=== PATIENT | male | born 1945 | race Caucasian/White ===

== ENCOUNTER 2024-05-16 19:35 | Emergency (ER) | payer OTHER, SELFPAY ==
[2024-05-16] VITALS (7 sets, daily range): BP systolic 112–142; BP diastolic 64–79; PULSE 86–89
[2024-05-16 20:00] LABS: % Basophils 0.4 % (0-2); % Eosinophils 0.3 % (0-6); % Immature Granulocytes 0.1 % (0-0.5); % Lymphocytes 22.1 % (20.5-51.1); % Monocytes 9.4 % (1.7-9.3); % Neutrophils 67.7 % (42.2-75.2); Absolute Lymphocytes 1.5 10^3/uL (1.2-3.4); Absolute Monocytes 0.7 10^3/uL (0.1-0.6); Absolute Neutrophils 4.7 10^3/uL (1.4-6.5); Hematocrit 37.7 % (39.0-52.0); Mean Corp Hgb Conc. 34.5 g/dL (33.0-37.0); Mean Corpuscular Hgb 28.8 pg (27.0-31.0); Mean Corpuscular Volume 83.4 fL (80.0-94.0); Mean Platelet Volume 10.7 fL (7.4-10.4); Nucleated Red Blood Cells % 0 % (-); Platelet Count 158 10^3/uL (130-400); Red Blood Cell Count 4.52 10^6/uL (4.70-6.10); Red Cell Dist. Width 13.2 % (11.5-14.5); White Blood Cell Count 6.9 10^3/uL (4.8-10.8)
--- NOTE | 2024-05-16 20:10 | ED.GENMED ---
History of Present Illness
General
Chief Complaint: Chest Pain
Source: patient
Exam Limitations: none
Time Seen by Provider: 05/16/24 19:57
History of Present Illness
History of Present Illness:
This is a 78 year old male that comes in with c/o chest pain and dizziness. States that he was painting in a bathroom today. States that he started with dizziness. Then he felt like he had to take a deep breath as he was SOB. States that he feels
like he has a knot in his chest. States that he is nauseated and had a headache.States that he feels like his head is spinning. Denies any fever, chills, abd pain, vomiting, diarrhea, urinary burning.
Past History
Past History
ED Past Medical History: CVA, GERD, HTN, Hypercholesterolemia, NIDDM, Psychiatric (Anxiety, Depression) and Other (Headaches, Rheumatic heart disease, Hiatal hernia, )
ED Past Surgical History: Orthopedic (Left thumb reattached) and Other (Hernia, Skin graft right hand, )
Social History
Tobacco: Non-smoker
Alcohol: None
Personal:
Living: with family
Review of Systems
Review of Systems
All Other Systems: ROS reviewed and negative except as documented in HPI and ROS
Constitutional: Reports no symptoms; Denies fever or chills
EENT: Reports no symptoms
Respiratory: Reports trouble breathing; Denies cough
Cardiac: Reports chest pain
ABD/GI: Reports nausea; Denies abdominal pain, vomiting or diarrhea
: Reports no symptoms; Denies dysuria, frequency or urgency
Musculoskeletal: Reports no symptoms
Skin: Reports no symptoms
Neurological: Reports dizzy and headache
Psychiatric: Reports no symptoms
Phy Exam
General Physical Exam
General Presentation: no apparent distress
General age: appears stated age
General Skin: warm and dry
General Habitus: elderly
General Mental: alert
General Hydration: appears well hydrated
ENT Exam
ENT Exam: TM's normal, pharynx normal and neck supple
Eye Exam
Eye Exam: EOMI
Cardiovascular Exam
Cardiovascular Exam: regular rate/rhythm, no edema, no murmur and normal peripheral pulses
Pulmonary Exam
Pulmonary Exam: lungs clear, no respiratory distress, no rales, chest non tender, no crackles, no rhonchi, no wheezing and no cough
Gastrointestinal Exam
Gastrointestinal Exam: normal bowel sounds, non tender, soft, no organomegaly, no pulsatile mass and non distended
Musculoskeletal Exam
Musculoskeletal Exam: full ROM and no edema
Skin Exam
Skin Exam: normal color, warm/dry, no rash and no petechia
Psychiatric Exam
Psychiatric Exam: normal mood/affect
Scores
Heart Score for Chest Pain Patients
STEMI patient?: No
History: Moderately Suspicious
ECG: Normal
Age: >/= 65 years
Risk Factors: 1 or 2 Risk Factors
Troponin: </= Normal Limit
Heart Score for Chest Pain Patients: 4
Heart Score Risk: 20.3% MACE over next 6 weeks
Course
Orders/Labs/Results
Orders:
Orders
05/16/24 19:41
EKG [Electrocardiogram (*1)] Urgent
Reason for Study: Chest Pain
EKG- Treatment ONCE
05/16/24 19:54
Complete Blood Count/With Diff Urgent
Comprehensive Metabolic Panel Urgent
Troponin I Urgent
05/16/24 20:09
Orthostatic VS- Treatment ONCE
0.9% Sodium Chloride 1000 ml [Nss] 1,000 ml IV BOLUS
Pantoprazole [Protonix IV] 40 mg IV NOW STA
Sucralfate Suspension [Carafate Suspension] 1 gm PO NOW STA
05/16/24 20:10
CR Chest - 2 Views Urgent
Comment:
Reason For Exam: Chest pain
05/16/24 20:12
Ondansetron Injectable [Zofran] 4 mg IV NOW STA
05/16/24 20:13
Acetaminophen [Tylenol] 1,000 mg PO NOW STA
05/16/24 20:15
CT Head W/o Iv Contrast Urgent
Comment: Prior CVA
Reason For Exam: dizziness, headache
05/16/24 21:44
EKG- Treatment ONCE
05/16/24 23:00
Electrocardiogram (*1) Urgent
Reason for Study: Chest Pain
Other Reason for Exam: Repeat with Troponin
Troponin I Urgent
Abnormal Lab Results
05/16/24
19:54
RBC 4.52 L 10^6/uL
(4.70-6.10)
Hct 37.7 L %
(39.0-52.0)
MPV 10.7 H fL
(7.4-10.4)
Absolute Monos (auto) 0.7 H 10^3/uL
(0.1-0.6)
Monocytes % 9.4 H %
(1.7-9.3)
Sodium 134 L mmol/L
(135-145)
BUN 23 H mg/dl
(9-20)
Glucose 156 H mg/dl
(70-99)
05/16/24 19:54
05/16/24 19:54
Dehydration. Hyperglycemia. Troponin 0.019. Second Troponin <0.012
Vital Signs
Initial and Last Documented VS:
Initial Vital Signs
Temp Pulse Resp BP Pulse Ox
98.4 F 85 18 112/79 99
05/16/24 19:41 05/16/24 19:41 05/16/24 19:41 05/16/24 19:41 05/16/24 19:41
Last Documented Vital Signs
Temp Pulse Resp BP Pulse Ox
98.4 F 86 11 113/67 98
05/16/24 19:41 05/16/24 22:45 05/16/24 22:45 05/16/24 22:00 05/16/24 22:45
MDM/Problems Addressed
Differential Diagnosis Includes:
Coronary syndrome. GERD,
MDM/Problems Addressed:
This is a 78 year old male that comes in with feeling like he has to take a deep breath and that he has chest pain. States that he feels like his head is spinning, he has a headache and nausea.
Will check labs, CT head, Chest x-ray, Give IV fluids and medicate for pain.
Back into see patient. Explained that his blood work shows Dehydration. His CT of the head and chest x-ray are normal. Patient states that he still has a slight headache but his chest pain is gone. This may be due to Reflux but as long as the second
Troponin is negative will place patient on the Cardiology hot line for further evaluation.
Explained that his second Troponin is normal. Will have patient take his Pantoprazole daily. Return with any concerns.
Repeat ECG: rate 90, 1st degree heart block, Left axis. Normal QRS, Negative for ischemia. ( RBBB noted on earlier ECG)
Chronic conditions affecting care:
Hiatal hernia, GERD,
Chronic conditions affecting care: DM
Acute Exacerbation and/or Progression of Chronic Illness:
GERD,
*Radiology
Radiology exam reviewed: radiology read reviewed (CT head-NO acute intracranial abnormality noted. Mild global parenchymal volume loss with sequelae of mild small vessel ischemic disease. Chest - NO acute cardiopulmonary abnormality. Unchanged
mild compression deformity of the T10 vertebral body. )
*Pulse Oximetry
Patient hypoxic: no
*EKG
Interpreted by ED Provider?: Yes
Heart Rate: 88
Rate: normal
Rhythm: sinus (MA-.20)
[place]: left axis deviation
Interval: normal interval
QRS Pattern: right bundle branch block
Ischemia: no ischemia
*Payer Specialist Interpretation
Rate: normal
Heart Rate: 89
Rhythm: sinus
*Critical Care Note
Total Time (30-74mins, 75-104mins- exclusive of procedures): Not Applicable
ED Attending Note
-
Portions of this chart may have been created with voice recognition software.� Occasional wrong word or��sound alike� substitutions may have occurred due to the inherent limitations of voice recognition software.
Discharge Plan
Departure
Patient Disposition: Home (Routine Discharge)
Date of Disposition: 05/16/24
Time of Disposition: 23:43
Patient with high blood pressure during this ER visit?: No
Condition: Good
Covid-19: Not Applicable
Discharge Problem:
Chest pain, SOB (shortness of breath)
Instructions: Shortness of Breath, Adult ED, Chest Pain DCA Follow Up
Prescriptions:
No Action
Ambien:
glipizide [Glipizide XL] 5 MG tablet extended release 24hr
5 mg PO BID
simvastatin 80 MG tablet
80 mg PO DAILY
aspirin [Aspir-Low] 81 MG tablet,delayed release (DR/EC)
81 mg PO DAILY
alprazolam 0.5 MG tablet
0.5 mg PO TID
metformin 1,000 MG tablet
1,000 mg PO BID
Lisinopril 10 MG
10 10 PO DAILY
Meclizine 25 MG
25 mg PO TID
zinc acetate 50 mg (zinc) Capsule
50 mg PO DAILY
aspirin 325 mg Tablet
325 mg PO DAILY
glipizide 5 mg Tablet Extended Release 24hr
5 mg PO BID
simvastatin 80 mg Tablet
80 mg PO HS
alprazolam 0.5 mg Tablet
0.5 mg PO TID
Patient Comments:
Patient usually takes once a day for anxiety.
tolterodine 2 mg Tablet
4 mg PO DAILY
amitriptyline 25 mg Tablet
25 mg PO DAILY
metformin 1,000 mg Tablet
1,000 mg PO BID
gabapentin 300 mg Capsule
300 - 600 mg PO DAILY
zolpidem 10 mg Tablet
10 mg PO HS
sertraline 50 mg Tablet
50 mg PO DAILY
Januvia 100 mg Tablet
100 mg PO DAILY
cholecalciferol (vitamin D3) [Vitamin D3] 50 mcg (2,000 unit) Capsule
50 mcg PO DAILY
Invokana 300 mg Tablet
300 mg PO DAILY
aspirin 81 mg Capsule
81 mg PO DAILY
oxycodone 5 mg tablet
5 mg PO Q4HPRN PRN (Reason: breakthrough/severe pain) Qty: 10 0RF
polyethylene glycol 3350 [Miralax] 17 gram powder in packet
17 g PO DAILY Qty: 14 0RF
pantoprazole [Protonix] 40 mg tablet,delayed release (DR/EC)
40 mg PO DAILY Qty: 30 0RF
Referrals:
German Ha DO [Family Provider] - Call in 1-3 days for appt
Activity Restrictions/Additional Instructions:
As discussed, your blood work shows Dehydration. Please increase your water intake to 8-8oz glasses daily. You have been place on the Cardiology hot line. You will be called on the next business day and set up for a cardiology appointment for
further evaluation. Continue with your Pantoprazole daily. IF YOU HAVE INCREASED OR CHANGING PAIN, OR YOU HAVE ANY OTHER CONCERNS PLEASE RETURN TO THE EMERGENCY ROOM.
Interventions
Interventions:
ED- Cardiac Assessment Last Done: 05/16/24 20:57
Discharge Date and Time
Print Language: MALAGASY
[2024-05-16 20:19] LABS: ALT (SGPT) 15 U/L (0-50); AST (SGOT) 29 U/L (17-59); Albumin 4.8 g/dl (3.5-5.0); Alkaline Phosphatase 44 U/L (38-126); Blood Urea Nitrogen 23 mg/dl (9-20); Carbon Dioxide 24 mmol/L (22-30); Chloride 100 mmol/L (98-107); Glucose 156 mg/dl (70-99); Potassium 4.8 mmol/L (3.5-5.1); Sodium 134 mmol/L (135-145); Total Bilirubin 0.4 mg/dl (0.2-1.3); Total Protein 7.3 g/dl (6.3-8.2); eGFR > 60.00
[2024-05-16] MEDS: PROTONIX IV 40 MG IV (20:22)
[2024-05-16] MEDS: NSS 1000 IV (20:22)
[2024-05-16] MEDS: ZOFRAN 4 MG IV (20:22)
[2024-05-16 20:24] LABS: Troponin I 0.019 ng/ml
[2024-05-16] MEDS: CARAFATE SUSPENSION 1 GM PO (20:25)
[2024-05-16] MEDS: TYLENOL 1000 MG PO (20:25)
[2024-05-16 23:34] LABS: Troponin I < 0.012 ng/ml
== END 2024-05-16 23:53 | disposition home or self-care (01) ==
LOC: EMR 19:35
PROVIDERS: Clinical Nurse Specialist Family Health; Student in an Organized Health Care Education/Training Program; EMERGENCY PHYSICIAN Emergency Medicine; FAMILY PHYSICIAN Family Medicine
DX: R07.89 Other chest pain (principal); R06.02 Shortness of breath
CPT/HCPCS: 99285; 96374; 96375; 96361; 70450; 71046; 80053; 84484; 85025; 93005

== ENCOUNTER → 2024-06-04 13:46 | Outpatient (REF) | payer OTHER, SELFPAY | LOC: HWRCS 13:46 | PROVIDERS: ATTENDING PHYSICIAN Internal Medicine Cardiovascular Disease; FAMILY PHYSICIAN Family Medicine | DX: R07.89 Other chest pain (principal); I45.2 Bifascicular block; Z86.39 Personal history of other endocrine, nutritional and metabolic disease | CPT/HCPCS: 93306 ==

== ENCOUNTER → 2024-06-16 07:34 | Outpatient (REF) | payer OTHER, SELFPAY | LOC: DHCBC/DCA 07:34 | PROVIDERS: ATTENDING PHYSICIAN Internal Medicine Cardiovascular Disease; FAMILY PHYSICIAN Family Medicine | DX: R07.89 Other chest pain (principal); I45.2 Bifascicular block; Z86.39 Personal history of other endocrine, nutritional and metabolic disease | CPT/HCPCS: 78452; 93017; A9500 ==

== ENCOUNTER 2025-07-19 06:24 | Inpatient (IN) | payer OTHER, SELFPAY ==
[2025-07-18 21:47] VITALS: BP 146/80
[2025-07-18 21:52] LABS: Glucose - Point of Care 109 mg/dl (70-99)
[2025-07-18 22:58] VITALS: BP 147/68
[2025-07-18 23:00] VITALS: BP 126/109
[2025-07-18 23:16] VITALS: BP 143/78
[2025-07-18 23:18] VITALS: BMI 23.8
[2025-07-19] VITALS (12 sets, daily range): BP systolic 125–161; BP diastolic 70–85; PULSE 89–95; BMI 22.4
[2025-07-19 00:03] LABS: Hematocrit 37.5 % (39.0-52.0); Hemoglobin 12.3 g/dL (13.0-18.0); Mean Corp Hgb Conc. 32.8 g/dL (33.0-37.0); Mean Corpuscular Volume 84.1 fL (80.0-94.0); Nucleated Red Blood Cells % 0 % (-); Platelet Count 218 10^3/uL (130-400); Red Cell Dist. Width 13.2 % (11.5-14.5)
[2025-07-19 00:15] LABS: APTT 29.3 Sec (23.4-35.0); INR 0.95; PT 13.0 Sec (11.4-14.6)
[2025-07-19] MEDS: NSS 1000 IV ×3 (00:23→15:57)
[2025-07-19 00:27] LABS: ALT (SGPT) 22 U/L (0-50); AST (SGOT) 26 U/L (17-59); Albumin 4.1 g/dl (3.5-5.0); Alkaline Phosphatase 52 U/L (38-126); Blood Urea Nitrogen 21 mg/dl (9-20); Calcium 9.4 mg/dl (8.4-10.2); Carbon Dioxide 23 mmol/L (22-30); Chloride 106 mmol/L (98-107); Estimated Creatinine Clearance 47 ml/min; Glucose 110 mg/dl (70-99); Potassium 5.3 mmol/L (3.5-5.1); Sodium 138 mmol/L (135-145); Total Protein 6.9 g/dl (6.3-8.2); eGFR > 60.00
[2025-07-19 00:33] LABS: Urine Character Slightly Cloudy (Clear)
[2025-07-19 00:47] LABS: Troponin I < 0.012 ng/ml
[2025-07-19 01:04] LABS: Urine White Cell >100 /HPF (0-5)
[2025-07-19 01:07] LABS: Urine Squamous Cell SEEN /LPF (Few)
--- NOTE | 2025-07-19 01:56 | ED.GENMED ---
History of Present Illness
General
Chief Complaint: Dizziness
Source: patient
Exam Limitations: none
Time Seen by Provider: 07/18/25 23:05
Nursing documentation reviewed up to this point in time: agreed with
History of Present Illness
History of Present Illness:
Note:
CHIEF COMPLAINT(S)
Middle back pain, dizziness, and difficulty urinating, with intermittent diarrhea lasting eight days.
HISTORY OF PRESENT ILLNESS
The patient is a 79-year-old male who presents with a complaint of constant middle back pain persisting for eight days, coinciding with the initiation of antibiotic therapy. He reports mild discomfort during urination, which has since improved.
Additionally, he experienced darker urine that has now returned to a yellow coloration. There were episodes of diarrhea, although none occurred today. The patient denies any fever at present, mentioning that any previous temperature elevation was
mild. He describes occasional dizziness, which might suggest dehydration, as he reports consuming fluid but not in adequate amounts, implying possible insufficient hydration. He denies any abdominal pain or side pain, specifically targeting the
discomfort in the mid-back area.
PAST MEDICAL AND SURGICAL HISTORY
The patient has a history of diabetes mellitus, hypertension, and a transient ischemic attack (TIA) over ten years ago. He also has a history of rheumatic fever.
CHRONIC MEDICAL CONDITIONS SIGNIFICANTLY AFFECTING CARE
Diabetes mellitus and hypertension.
PHYSICAL EXAM
General: Alert, cooperative, not in acute distress.
Skin: Warm, dry.
Head: Normocephalic, atraumatic.
Neck: Supple, trachea midline.
Eye, Ears, Nose, Mouth and Throat: Oral mucosa moist.
Cardiovascular: Normal peripheral perfusion, No edema.
Respiratory: Respirations are non-labored.
Gastrointestinal: Abdomen nondistended.
Back: Normal range of motion, tenderness noted in the middle region.
Musculoskeletal: Normal range of motion, normal strength.
Neurological: Alert and oriented to person, place, time, and situation, No focal neurological deficit observed.
Psychiatric: Cooperative, appropriate mood & affect.
PLAN
1. Initiate blood work to assess for possible underlying causes of dizziness and back pain, including renal function tests.
2. Perform a urinalysis to check for evidence of hematuria or infection.
3. Conduct a computed tomography (CT) scan of the head to explore potential causes of dizziness and rule out any cranial pathology.
4. Administer fluids to address potential dehydration.
5. Vital signs monitoring including laying, sitting, and standing positions to evaluate for postural changes contributing to dizziness.
DIFFERENTIAL DIAGNOSIS
The Differential Diagnosis includes, in no particular order and is not limited to:
1. Urinary tract infection
2. Kidney stones
3. Dehydration
4. Renal insufficiency
5. Vertigo
6. Electrolyte imbalance
7. Spinal pathologies such as osteoarthritis
8. Side effects of medications
9. Rheumatic disease flare
10. Diabetic neuropathy
Disposition:
SUMMARY OF ENCOUNTER
The patient, a 79-year-old male, was seen due to fatigue and weakness. He has a history of a urinary tract infection (UTI). A computed tomography (CT) scan was conducted, revealing an ascending UTI with a bladder outlet obstruction. To manage this,
a Huston catheter will be placed, and the UTI will be treated with piperacillin-tazobactam (Zosyn).
DISPOSITION
Admit to the hospital service.
ASSESSMENT
The patient has an ascending urinary tract infection with bladder outlet obstruction, contributing to his fatigue and weakness.
PLAN
The patient will have a Huston catheter placed to address the bladder outlet obstruction. Treatment of the UTI will be administered using piperacillin-tazobactam (Zosyn).
INDEPENDENT REVIEW OF LABS AND INTERPRETATION OF TESTS
My independent review of the CT scan indicates an ascending urinary tract infection with a bladder outlet obstruction.
MEDICATION RECONCILIATION
1. Piperacillin-tazobactam (Zosyn) for treatment of the urinary tract infection.
MEDICAL DECISION MAKING
-Number and Complexity of Problems Addressed: Chronic conditions affecting care include diabetes mellitus, hypertension, and past history of transient ischemic attack. Differential Diagnosis includes urinary tract infection, renal insufficiency, and
side effects of medications.
-Data:
Category [address] scan was conducted revealing an ascending UTI with a bladder outlet obstruction.
Category 2
My independent interpretation of the CT scan indicates an ascending urinary tract infection with a bladder outlet obstruction.
-Risk:
Prescription medication was prescribed involving piperacillin-tazobactam (Zosyn).
DIAGNOSIS
- Ascending urinary tract infection with bladder outlet obstruction (N39.0, N13.8).
Past History
Past History
ED Past Medical History: CVA, GERD, HTN, Hypercholesterolemia, NIDDM, Psychiatric (Anxiety, Depression) and Other (Headaches, Rheumatic heart disease, Hiatal hernia, )
ED Past Surgical History: Orthopedic (Left thumb reattached) and Other (Hernia, Skin graft right hand, )
Social History
Tobacco: Non-smoker
Alcohol: None
Personal:
Living: with family
Phy Exam
Physical Exam
Physical Exam:
.
Course
Orders/Labs/Results
Orders:
Orders
07/18/25 21:51
Electrocardiogram (*1) Urgent
Reason for Study: Vertigo / Dizzy
EKG- Treatment ONCE
07/18/25 23:27
Orthostatic VS- Treatment ONCE
0.9% Sodium Chloride 1000 ml [Nss] 1,000 ml IV BOLUS
07/18/25 23:32
Urinalysis Reflex To Culture Urgent
Date Specimen was Collected: 07/19/25
Time Specimen was Collected: 00:06
07/18/25 23:46
CT Head W/o Iv Contrast Urgent
Reason For Exam: dizziness
07/18/25 23:51
Complete Blood Count/With Diff Urgent
Comprehensive Metabolic Panel Urgent
Erythrocyte Sed Rate Urgent
PTT Urgent
Prothrombin Time Urgent
Troponin I Urgent
07/19/25 00:13
Urine Microscopic Reflex Cult Urgent
Urine Culture Urgent
MARCIO Source: U
Specimen Description:
Date Specimen was Collected: 07/19/25
Time Specimen was Collected: 00:06
07/19/25 01:01
CT Abd/pelvis W Iv Cont Urgent
Comment:
Reason For Exam: hematuria, back pain
07/19/25 01:12
Lactic Acid Q4H
Comment: CANCEL 2nd LACTIC ACID IF 1st LACTIC ACID IS LESS THAN 2
07/19/25 04:01
Piperacillin/Tazo 4.5 Gram [Zosyn] 4.5 gram in 100 ml IV NOW
07/19/25 04:04
Huston Placement- Treatment ONCE
Reason for insertion: Outlet obstruction
07/19/25 05:11
Morphine Sulfate 2 mg IV NOW STA
07/19/25 05:16
COVID-19 Antigen Urgent
Source: Nasal Swab
Lactic Acid Q4H
Comment: CANCEL 2nd LACTIC ACID IF 1st LACTIC ACID IS LESS THAN 2
07/19/25 05:32
Admit/Transfer Patient As Directed
Co-Sign Provider:
Level of Care: Inpatient admission
Assign to:: Medical/Surgical
Physician / Group: Joel
Diagnosis: UTI, Sepsis, CHA
Reason for Hospitalization: UTI, CHA
Expected length of stay greater than two midnights?: Yes
ELOS- Estimated Length of Stay in days: 3
I certify the patient meets the requirements for IP care: Yes
PRN Pain Medication Management As Directed
May give lesser potent ordered pain med per pt: Yes
preference::
Protocol:: Medication orders for pain may be administered in a
manner that supports deferring to patient preference
when the pt is:
- Requesting an ordered lesser potent pain medication.
Least to most potent pain medications are defined
as: acetaminophen < NSAID < tramadol < opioids
(morphine, oxycodone, hydromorphone).
- Requesting a lesser dose of the same medication IF
ORDERED.
- Requesting a less intrusive route of administration
if both routes are prescribed by the provider (PO <
IV).
07/19/25 05:33
Code Status As Directed
Resuscitation Status: Do not resuscitate
Reached after discussion with pt or family/Healthcare POA: Yes
07/19/25 05:34
DNR Bracelet Application ONCE
07/19/25 05:36
0.9% Sodium Chloride 1000 ml [Nss] 1,000 ml IV BOLUS
07/19/25 05:45
0.9% Sodium Chloride 1000 ml [Nss] 1,000 ml IV 100 mls/hr
07/19/25 Breakfast
Regular
At Your Request: Full Participation
Does patient need a safe tray?: No
07/19/25 07:35
Acetaminophen [Tylenol] 650 mg PO Q4HPRN PRN
Alprazolam [Xanax] 0.5 mg PO TID PRN Anxiety Anxiety
Dextrose 50%-Water [Dextrose 50% Syringe] 12.5 grams IV [id number] PRN
Glucagon [GlucaGen] 1 mg IM PRN PRN
Insulin Aspart Corrective Low [Novolog Flexpen-Low Resistance] See Protocol SC AC
07/19/25 07:35
Activity As Directed
Activity Level: Ambulate
With Assistance
Bedside Glucose Monitoring As Directed
Frequency: AC&HS
Additional Instructions:: Change to q6h if pt on TPN, tube feeding or not eating
Huston Catheter [Catheter- Indwelling] As Directed
Reason for insertion: Acute Retention
Discontinue Date/Time: 07/22/25 0600
I/O [Intake/ Output] As Directed
Frequency: Per unit guidelines
Pneumatic Compression Sleeves As Directed
Type: Knee high
Vital Signs As Directed
Frequency: Per unit guidelines
Oxygen Therapy [O2 Therapy] [RESP] Routine
Titrate/Wean O2 to maintain O2 sat greater than (%): 94
DX Deep Vein Thrombosis Video Routine
07/19/25 08:00
Aspirin Chewable [Low Strength Aspirin] 81 mg PO DAILY
Atorvastatin [Lipitor] 40 mg PO DAILY
CefTRIAXone [Rocephin] 1,000 mg IV Q24H
Sertraline HCl [Zoloft] 50 mg PO DAILY
Sitagliptin Phosphate [Januvia] 100 mg PO DAILY
Tamsulosin [Flomax] 0.4 mg PO DAILY
07/19/25 22:00
Amitriptyline [Elavil] 25 mg PO HS
07/20/25 06:00
Basic Metabolic Panel IN AM
Complete Blood Count/No Diff IN AM
Glycohemoglobin (HgbA1c) IN AM
Abnormal Lab Results
07/18/25 07/18/25 07/19/25
21:51 23:51 00:13
WBC 15.4 H 10^3/uL
(4.8-10.8)
RBC 4.46 L 10^6/uL
(4.70-6.10)
Hgb 12.3 L g/dL
(13.0-18.0)
Hct 37.5 L %
(39.0-52.0)
MCHC 32.8 L g/dL
(33.0-37.0)
Abs Immat Gran (auto) 0.1 H 10^3/uL
(0-0.05)
Absolute Neuts (auto) 13.4 H 10^3/uL
(1.4-6.5)
Absolute Lymphs (auto) 1.0 L 10^3/uL
(1.2-3.4)
Absolute Monos (auto) 0.8 H 10^3/uL
(0.1-0.6)
Immature Gran % 0.7 H %
(0-0.5)
Neutrophils % 87.0 H %
(42.2-75.2)
Lymphocytes % 6.6 L %
(20.5-51.1)
ESR 38 H mm/hour
(0-20)
Potassium 5.3 H mmol/L
(3.5-5.1)
BUN 21 H mg/dl
(9-20)
Glucose 110 H mg/dl
(70-99)
Lactic Acid
Total Bilirubin 0.1 L mg/dl
(0.2-1.3)
Ur Occult Blood Reflex 1+ A
(Negative)
Leukocyte Esterase Rfl 2+ A
(Negative)
Urine WBC (Reflex) >100 A /HPF
(0-5)
Urine Yeast Many A
(Negative)
Urine Glucose 4+ A
(Negative)
POC Glucose 109 H mg/dl
(70-99)
07/19/25
01:12
WBC
RBC
Hgb
Hct
MCHC
Abs Immat Gran (auto)
Absolute Neuts (auto)
Absolute Lymphs (auto)
Absolute Monos (auto)
Immature Gran %
Neutrophils %
Lymphocytes %
ESR
Potassium
BUN
Glucose
Lactic Acid 2.4 H mmol/L
(0.7-2.0)
Total Bilirubin
Ur Occult Blood Reflex
Leukocyte Esterase Rfl
Urine WBC (Reflex)
Urine Yeast
Urine Glucose
POC Glucose
07/18/25 23:51
07/18/25 23:51
Vital Signs
Initial and Last Documented VS:
Initial Vital Signs
Temp Pulse Resp BP Pulse Ox
98.2 F 88 18 146/80 99
07/18/25 21:47 07/18/25 21:47 07/18/25 21:47 07/18/25 21:47 07/18/25 21:47
Last Documented Vital Signs
Temp Pulse Resp BP Pulse Ox
98.3 F 79 18 125/72 97
07/19/25 23:28 07/19/25 23:28 07/19/25 23:28 07/19/25 23:28 07/19/25 23:28
*Radiology
Radiology exam reviewed: radiology read reviewed
*Pulse Oximetry
SaO2: 99
Oxygen Mode of Delivery: Room air
Patient hypoxic: no
*EKG
Interpreted by ED Provider?: Yes
Interpretation: abnormal
Heart Rate: 86
Rhythm: sinus arrhythmia
[place]: left axis deviation
QRS Pattern: right bundle branch block
Ischemia: no ischemia
*Critical Care Note
Total Time (30-74mins, 75-104mins- exclusive of procedures): Not Applicable
Update Note
Update Note:
NAME: EMMA BRADLEY
DATE OF EXAM: 07/19/2025
Patient No: [id number]
Physician: PETERSON
Date of : 1945
Past Medical History (entered by Technologist):
Reason For Exam (entered by Technologist):
Other Notes (entered by Technologist): patient reports feeling like he is going to pass out, has been on antibiotics for possilble UTI
Prior sent
Additional Information (per [facility] Radiologist): Feels like they are going to pass out
CT head
Comparison: CT head 05/16/2024
IMPRESSION:
No acute intracranial findings
Global cerebral volume loss
Case finalized on 07/19/25 01:04 EST
Onur Celis M.D.
This report has been electronically signed and verified by the Radiologist whose name is printed above.
NAME: EMMA BRADLEY
DATE OF EXAM: 07/19/2025
Patient No: [id number]
Physician: DAYA^Catalina
Date of : 1945
Past Medical History (entered by Technologist):
Reason For Exam (entered by Technologist):
Other Notes (entered by Technologist): hematuria, back pain
Prior sent
Additional Information (per [facility] Radiologist):
CT abdomen and pelvis with contrast
IMPRESSION:
Findings suggest bladder outlet obstruction
Enlarged heterogeneous prostate with prominent distention of the urinary bladder(dome extends above the level of umbilicus)
Findings of cystitis with moderate urinary bladder wall thickening with infiltration of perivesical fat
Moderate left-sided hydroureteronephrosis probably reflecting reflux
No obstructing calculus
Mild herogeneous enhancement of the left kidney with minimal perinephric stranding
May signify early manifestation of pyelonephritis
No other acute intra-abdominal pathology
Moderate stool burden. Correlate for history of constipation
Cholelithiasis
Right renal cyst
Atherosclerotic calcifications abdominal aorta and iliofemoral vessels
degenerative changes in the spine, pelvis, and hips
Case finalized on 07/19/25 04:01 EDT
Onur Celis M.D.
ED Attending Note
-
Portions of this chart may have been created with voice recognition software.� Occasional wrong word or��sound alike� substitutions may have occurred due to the inherent limitations of voice recognition software.
Discharge Plan
Departure
Patient Disposition: Admit
Date of Disposition: 07/19/25
Time of Disposition: 04:08
Admit to: Telemetry
Presentation/result/management discussed w/ accepting MD/DO: Hospitalist
Condition: Fair
Discharge Problem:
Acute pyelonephritis, Bladder outlet obstruction, Acute UTI
Interventions
Interventions:
*Risk Screen - Suicide Last Done: 07/18/25 21:47
*General Assessment Last Done: 07/18/25 21:47
*Neglect/Abuse Screening Last Done: 07/18/25 21:47
*ED- Fall Risk Assessment Last Done: 07/18/25 21:47
*ED COVID-19 Vaccine History Last Done: 07/18/25 21:47
*ED Influenza Vaccine History Last Done: 07/18/25 21:47
*Nursing Disposition Last Done: 07/19/25 07:18
ED- Neurological Assessment Last Done: 07/18/25 23:18
ED- Cardiac Assessment Last Done: 07/18/25 23:18
ED Swallowing Screen Last Done: 07/18/25 23:18
Discharge Date and Time
Discharge Date/Time: 07/19/25 07:20
[2025-07-19] MEDS: ZOSYN 100 IV (04:16)
[2025-07-19] MEDS: MORPHINE SULFATE 2 MG IV (05:25)
--- NOTE | 2025-07-19 05:35 | HPS.HSE ---
Family Physician
-
Family Physician: German Ha
Chief Complaint
-
Back Pain, Urinary Symptoms, Fatigue
History of Present Illness
Patient is a 79y M with PMH significant for hypertension and DM-II who presents to ED complaining of back pain, dysuria, frequency and fatigue. Patient states that he started with back pain and dysuria, frequency about 2 weeks ago. He was seen
by his PCP and started on an abx (? which). He had some diarrhea with the initial agent. The abx was changed to a second agent (? due to diarrhea or due to culture data?). He has been on this for about 3 days now. Despite these medication,
patient continues to feel poorly. he has been very weak and lethargic, sleeping for much of the day. This evening he presented to the ED for further evaluation.
Medical History
Past Medical History
Past Medical History: Reports Other
Additional Past Medical History:
Hypertension
DM-II
TIA
GERD
Past Surgical History: Reports Other
Additional Past Surgical History:
Hernia Repair
Skin Graft
L Hand Surgery
Social History
Tobacco: Non-smoker
Alcohol: Former
Drug: None
Personal:
Living: With Family
Family History
Family History: Not pertinent
Allergies / Home Medications
Allergies reflects when Allergies were last updated in [facility].
Home Medications with original date entered in [facility]
Allergy/Medication List:
Allergies
Allergy/AdvReac Type Severity Reaction Status Date / Time
No Known Allergies Allergy Verified 07/18/25 21:50
Home Medications
Lisinopril 10 10 PO DAILY 10/12/12
alprazolam 0.5 mg tablet 0.5 mg PO TID 10/12/12
metformin 1,000 mg tablet 1,000 mg PO BID 10/12/12
simvastatin 80 mg tablet 80 mg PO DAILY 10/12/12
amitriptyline 25 mg tablet 25 mg PO DAILY 08/11/22
aspirin 325 mg tablet 325 mg PO DAILY 08/11/22
canagliflozin 300 mg tablet (Invokana) 300 mg PO DAILY 08/11/22
cholecalciferol (vitamin D3) 50 mcg (2,000 unit) capsule (Vitamin D3) 50 mcg PO DAILY 08/11/22
gabapentin 300 mg capsule 300 - 600 mg PO DAILY 08/11/22
glipizide 5 mg tablet, extended release 24 hr 5 mg PO BID 08/11/22
sertraline 50 mg tablet 50 mg PO DAILY 08/11/22
sitagliptin phosphate 100 mg tablet (Januvia) 100 mg PO DAILY 08/11/22
tolterodine 2 mg tablet 4 mg PO DAILY 08/11/22
zinc acetate 50 mg (zinc) capsule 50 mg PO DAILY 08/11/22
zolpidem 10 mg tablet 10 mg PO HS 08/11/22
pantoprazole 40 mg tablet,delayed release (Protonix) 40 mg PO DAILY #30 tabs 12/24/23
Review of Systems
-
History Source: Patient
A 12 point ROS was completed and negative except as noted: Yes
Constitutional: Reports Fatigue; Denies Fever or Chills
EENT: Denies Sore Throat
Respiratory: Denies Cough or Trouble Breathing
Cardiac: Denies Chest Pain or Palpitations
Abdomen/GI: Denies Abdominal Pain, Nausea, Vomiting or Diarrhea
: Reports Dysuria, Frequency, Flank Pain and Urgency; Denies Bleeding
Musculoskeletal: Denies Joint Pain or Edema
Neurological: Reports Dizzy; Denies Headache
Psych: Denies Depression or Anxiety
Physical Exam
Vital Signs
Vital Signs
Temp Pulse Resp BP Pulse Ox
98.5 F 94 9 140/78 98
07/19/25 05:14 07/19/25 05:15 07/19/25 05:15 07/19/25 05:12 07/19/25 05:15
Physical Exam
General: Other (79y M in no acute distress.)
HEENT: Moist mucous membranes and PERRLA
Respiratory: Clear; No Wheezes, Rales or Rhonchi
Cardiac: S1/S2 and Regular Rhythm; No Murmur
GI: Soft, Non Distended, Normal Bowel Sounds and Other (Mild tenderness lower abdomen. No rebound / guarding.)
Genito-urinary: Other (Huston in place drainaing yellow urine with rare clot. No CVAT.)
Musculoskeletal: No Clubbing, No Cyanosis and No Edema
Neuro: AO x 3
Laboratory Results
-
07/18/25 23:51
07/18/25 23:51
Laboratory Results
PT 13.0 Sec (11.4-14.6) 07/18/25 23:51
INR 0.95 07/18/25 23:51
APTT 29.3 Sec (23.4-35.0) 07/18/25 23:51
Lactic Acid 2.4 mmol/L (0.7-2.0) H 07/19/25 01:12
Total Bilirubin 0.1 mg/dl (0.2-1.3) L 07/18/25 23:51
AST 26 U/L (17-59) 07/18/25 23:51
ALT 22 U/L (0-50) 07/18/25 23:51
Alkaline Phosphatase 52 U/L (38-126) 07/18/25 23:51
Troponin I < 0.012 ng/ml 07/18/25 23:51
Impression/Plan
-
A/P: Patient is a 79y M with PMH significant for hypertension and DM-II who presents to ED complaining of urinary symptoms, fatigue and back pain.
UTI / Pyelonephritis
Sepsis secondary to the above
- Admit for further evaluation and treatment.
- Patient presents with leukocytosis, tachycardia and UA / symptoms consistent with infection.
- CT scan show L hydro with stranding c/w ascending urinary tract infection.
- IV ceftriaxone for now pending culture data.
- Bladder decompression will likely do most to improve his symptoms / infection.
- Follow culture and adjust treatment as needed.
Bladder Outlet Obstruction
BPH
- Likely the reason for UTI and failure to improve.
- Huston placed in the ED for initial return of 800cc. Some blood clots / since that time - but minimal.
- Maintain Huston.
- Tamsulosin daily.
- TOV prior to discharge.
Benign Hypertension
- Patient has been holding his lisinopril due to hypotension / lightheadedness.
- Will continue to hold for now.
DM-II
- Stable. Hold most PO meds acutely.
- Follow glucose and cover with SSI as needed.
- Update A1C.
Prior TIA
- Change ASA to 81mg daily which should be sufficient.
DVT Prophylaxis: SCDs
Code Status: DNR
[2025-07-19 05:43] LABS: COVID-19 Antigen Negative (Negative)
[2025-07-19 07:49] LABS: Glucose - Point of Care 112 mg/dl (70-99)
[2025-07-19] MEDS: XANAX 0.5 MG PO ×3 (08:01→22:10)
[2025-07-19] MEDS: NOVOLOG FLEXPEN-LOW RESISTANCE SC ×2 (08:03→17:07)
[2025-07-19] MEDS: STERILE WATER FOR INJECTION 10 ML IV (08:05)
[2025-07-19] MEDS: ZOLOFT 50 MG PO (08:05)
[2025-07-19] MEDS: ROCEPHIN 1000 MG IV (08:05)
[2025-07-19] MEDS: FLOMAX 0.4 MG PO (08:05)
[2025-07-19] MEDS: JANUVIA 100 MG PO (08:05)
[2025-07-19] MEDS: LIPITOR 40 MG PO (08:05)
[2025-07-19] MEDS: LOW STRENGTH ASPIRIN 81 MG PO (08:08)
--- NOTE | 2025-07-19 09:00 | PTCARENOTE ---
Pt admitted into room 413-2, ambulated with x1 assist from stretcher to bed, VSS. Huston draining blood tinged urine. Pt AAOx3 and oriented to room, call eller within reach.
--- NOTE | 2025-07-19 09:34 | CM ---
Addendum entered by Isa Izquierdo 07/19/25 09:37:
IMM signed by patient and placed on chart.
Original Note:
CM reviewed chart. Met with pt at bedside. Explained role and discussed anticipated dc plan/options.
Pt currently being treated for UTI/Sepisis w/ivabx.
Pt owns no DME. Is I w/AMB and ADLs. Lives with in 2story home w/FF up to 2nd fl BB.
Pt has no hx of HC or SNF placement. Discussed visiting nurse at dc however pt declining.
Pt has an apptmt with PCP in approx 2 wks and will follow up him.
Family will transport at dc.
CM/SW will continue to follow to ensure a safe and timely dc.
--- NOTE | 2025-07-19 11:06 | W.PN.HOSP.TC ---
Today's Communication/Plan
-
Feels well. Continue current plan. ABx.
Assessment / Plan
Assessment / Plan
79y M with PMH significant for hypertension and DM-II who presents to ED complaining of urinary symptoms, fatigue and back pain.
1. UTI / Pyelonephritis
Sepsis secondary to the above
- Patient presents with leukocytosis, tachycardia and UA / symptoms consistent with infection.
- CT scan show L hydro with stranding c/w ascending urinary tract infection.
- IV ceftriaxone for now pending culture data.
- Bladder decompression will likely do most to improve his symptoms / infection.
- Follow culture and adjust treatment as needed.
2. Bladder Outlet Obstruction
BPH
- Likely the reason for UTI and failure to improve.
- Huston placed in the ED for initial return of 800cc. Some blood clots / since that time - but minimal.
- Maintain Huston.
- Tamsulosin daily.
- TOV prior to discharge.
3. Benign Hypertension
- Patient has been holding his lisinopril due to hypotension / lightheadedness.
- Will continue to hold for now.
4. DM-II
- Stable. Hold most PO meds acutely.
- Follow glucose and cover with SSI as needed.
- Update A1C.
5. Prior TIA
- Change ASA to 81mg daily which should be sufficient.
DVT Prophylaxis: SCDs
Code Status: DNR
Anticipated Discharge: 24 - 48 hours
Subjective/Interval History
-
Date of Service: July 19, 2025
No new complaints
Objective Data
-
Labs:
Laboratory Results
07/18/25
23:51
WBC 15.4 H
Hgb 12.3 L
Hct 37.5 L
Plt Count 218
PT 13.0
INR 0.95
APTT 29.3
Sodium 138
Potassium 5.3 H
Chloride 106
Carbon Dioxide 23
BUN 21 H
Creatinine 1.2
Glucose 110 H
Calcium 9.4
Total Bilirubin 0.1 L
AST 26
ALT 22
Alkaline Phosphatase 52
Vital Signs:
Vital Signs
Temp Pulse Resp BP Pulse Ox
98.1 F 98 18 150/78 95
07/19/25 07:15 07/19/25 07:15 07/19/25 07:15 07/19/25 07:15 07/19/25 07:15
I&O
07/18/25 07/19/25 07/20/25
06:59 06:59 06:59
Output Total 600 / 600
Balance -600 / -600
Review of Systems
-
History Source: Patient
All other systems: Reviewed and negative
Physical Exam
-
General: Well Developed, Well Nourished, No Apparent Distress, Comfortable and Conversant
HEENT: Normocephalic, Atraumatic, Moist Mucous Membranes, Nose Appears Normal and Ears Appear Normal
Respiratory: Clear to Auscultation
Cardiac: Regular Rhythm and S1/S2
GI: Soft, Nontender and Nondistended
Musculoskeletal: No Clubbing, No Cyanosis and No Edema
Skin: Warm and Dry; Negative Rash
Neuro: Awake, Alert, Oriented and AO x 3
Psych: Calm
Data Reviewed
-
Labs: Labs Reviewed by me
[2025-07-19 12:00] LABS: Glucose - Point of Care 174 mg/dl (70-99)
[2025-07-19] MEDS: TYLENOL 650 MG PO (13:02)
[2025-07-19] MEDS: NOVOLOG FLEXPEN-LOW RESISTANCE 1 UNITS SC (13:26)
[2025-07-19 16:49] LABS: Glucose - Point of Care 131 mg/dl (70-99)
[2025-07-19] MEDS: ROXICODONE 5 MG PO (17:48)
[2025-07-19] MEDS: ELAVIL 25 MG PO (21:42)
[2025-07-19] MEDS: MELATONIN 5 MG PO (22:13)
[2025-07-20 00:55] LABS: Glucose - Point of Care 93 mg/dl (70-99)
[2025-07-20] MEDS: NSS 1000 IV (03:03)
[2025-07-20 07:25] VITALS: BP 123/73
--- NOTE | 2025-07-20 07:30 | W.PN.HOSP.TC ---
Today's Communication/Plan
-
TOV today
follow ucx
continue cftx
dc ivf
Assessment / Plan
Assessment / Plan
79y M with PMH significant for hypertension and DM-II who presents to ED complaining of urinary symptoms, fatigue and back pain.
# UTI / Pyelonephritis
Sepsis secondary to the above
- Patient presents with leukocytosis, tachycardia and UA / symptoms consistent with infection.
- Leukocytosis resolved
- CT scan show L hydro with stranding c/w ascending urinary tract infection.
- IV ceftriaxone for now pending culture data. Day 2
- Bladder decompression will likely do most to improve his symptoms / infection.
- void trial today
# Bladder Outlet Obstruction
BPH
- Likely the reason for UTI and failure to improve.
- Huston placed in the ED for initial return of 800cc. Some blood clots / since that time - but minimal.
- Tamsulosin daily.
# HyperK
- resolved
3. Benign Hypertension
- Patient has been holding his lisinopril due to hypotension / lightheadedness.
- Will continue to hold for now.
4. DM-II
- Stable. Hold most PO meds acutely.
- Follow glucose and cover with SSI as needed.
- Updated A1C is 7.0.
5. Prior TIA
- ASA 81mg daily which should be sufficient.
DVT Prophylaxis: SCDs
Code Status: DNR
Anticipated Discharge: 24 - 48 hours
Subjective/Interval History
-
Date of Service: July 20, 2025
AFVSS. feels well. reports no new complaints
Objective Data
-
Labs:
Laboratory Results
07/20/25
06:00
WBC Pending
Hgb Pending
Hct Pending
Plt Count Pending
Sodium Pending
Potassium Pending
Chloride Pending
Carbon Dioxide Pending
BUN Pending
Creatinine Pending
Glucose Pending
Calcium Pending
Vital Signs:
Vital Signs
Temp Pulse Resp BP Pulse Ox
98.3 F 79 18 125/72 97
07/19/25 23:28 07/19/25 23:28 07/19/25 23:28 07/19/25 23:28 07/19/25 23:28
I&O
07/19/25 07/20/25 07/21/25
06:59 06:59 06:59
Intake Total 1845 / 1845
Output Total 600 / 600 3550 / 3550
Balance -600 / -600 -1705 / -1705
Review of Systems
-
History Source: Patient
All other systems: Reviewed and negative
Physical Exam
-
General: Well Developed, Well Nourished, No Apparent Distress, Comfortable and Conversant
HEENT: Normocephalic, Atraumatic and Moist Mucous Membranes
Respiratory: Clear to Auscultation and Non Labored Respirations
Cardiac: Regular Rhythm and S1/S2
GI: Soft, Nontender and Nondistended
Genito-urinary: Clear Urine and Huston
Musculoskeletal: No Clubbing, No Cyanosis and No Edema
Skin: Warm and Dry; Negative Rash
Neuro: Awake, Alert, Oriented and AO x 3
Psych: Calm
Data Reviewed
-
CT Scan: Report Reviewed by me
Labs: Labs Reviewed by me, Discussed with Physician and Discussed with Patient
[2025-07-20 08:31] LABS: Glucose - Point of Care 123 mg/dl (70-99)
[2025-07-20 08:33] LABS: Hematocrit 36.3 % (39.0-52.0); Hemoglobin 11.4 g/dL (13.0-18.0); Mean Corp Hgb Conc. 31.4 g/dL (33.0-37.0); Mean Corpuscular Volume 87.5 fL (80.0-94.0); Platelet Count 189 10^3/uL (130-400); Red Cell Dist. Width 13.3 % (11.5-14.5)
[2025-07-20 08:57] LABS: Glycohemoglobin (HgbA1c) 7.0 % (4.0-5.6)
[2025-07-20 09:06] LABS: Blood Urea Nitrogen 12 mg/dl (9-20); Calcium 8.6 mg/dl (8.4-10.2); Carbon Dioxide 23 mmol/L (22-30); Chloride 108 mmol/L (98-107); Estimated Creatinine Clearance 55 ml/min; Glucose 91 mg/dl (70-99); Potassium 4.4 mmol/L (3.5-5.1); Sodium 137 mmol/L (135-145); eGFR > 60.00
[2025-07-20] MEDS: NOVOLOG FLEXPEN-LOW RESISTANCE SC ×2 (09:08→12:22)
[2025-07-20] MEDS: ROCEPHIN 1000 MG IV (09:10)
[2025-07-20] MEDS: STERILE WATER FOR INJECTION 10 ML IV (09:10)
[2025-07-20] MEDS: JANUVIA 100 MG PO (09:12)
[2025-07-20] MEDS: LOW STRENGTH ASPIRIN 81 MG PO (09:12)
[2025-07-20] MEDS: ZOLOFT 50 MG PO (09:12)
[2025-07-20] MEDS: LIPITOR 40 MG PO (09:12)
[2025-07-20] MEDS: FLOMAX 0.4 MG PO (09:12)
[2025-07-20] MEDS: XANAX 0.5 MG PO ×2 (09:19→17:32)
[2025-07-20 12:20] LABS: Glucose - Point of Care 146 mg/dl (70-99)
[2025-07-20 15:00] VITALS: BP 123/65
--- NOTE | 2025-07-20 15:14 | CM ---
Huston to be removed and voiding trial.
Pt declined VN at dc.
PLAN Home no anticipated needs
--- NOTE | 2025-07-20 15:27 | PTCARENOTE ---
Huston removed at 15:00 for voiding trial, urinal provided.
[2025-07-20 17:07] LABS: Glucose - Point of Care 154 mg/dl (70-99)
[2025-07-20] MEDS: NOVOLOG FLEXPEN-LOW RESISTANCE 1 UNITS SC (17:27)
[2025-07-20] MEDS: ELAVIL 25 MG PO (20:39)
[2025-07-20 21:27] LABS: Glucose - Point of Care 421 mg/dl (70-99)
[2025-07-20 22:31] LABS: Glucose 335 mg/dl (70-99)
[2025-07-20] MEDS: NOVOLOG FLEXPEN 4 UNITS SC (22:55)
[2025-07-20 23:21] VITALS: BP 121/78
[2025-07-21 01:17] LABS: Glucose - Point of Care 123 mg/dl (70-99)
[2025-07-21 03:27] LABS: Glucose - Point of Care 130 mg/dl (70-99)
[2025-07-21 07:20] VITALS: BP 131/76
[2025-07-21 07:30] LABS: Hematocrit 37.8 % (39.0-52.0); Hemoglobin 12.4 g/dL (13.0-18.0); Mean Corp Hgb Conc. 32.8 g/dL (33.0-37.0); Mean Corpuscular Volume 84.0 fL (80.0-94.0); Platelet Count 211 10^3/uL (130-400); Red Cell Dist. Width 13.2 % (11.5-14.5)
[2025-07-21 07:53] LABS: Glucose - Point of Care 137 mg/dl (70-99)
[2025-07-21 07:58] LABS: Blood Urea Nitrogen 16 mg/dl (9-20); Calcium 9.2 mg/dl (8.4-10.2); Carbon Dioxide 27 mmol/L (22-30); Chloride 106 mmol/L (98-107); Estimated Creatinine Clearance 50 ml/min; Glucose 142 mg/dl (70-99); Potassium 4.7 mmol/L (3.5-5.1); Sodium 141 mmol/L (135-145); eGFR > 60.00
[2025-07-21] MEDS: NOVOLOG FLEXPEN-LOW RESISTANCE SC (08:10)
[2025-07-21] MEDS: LOW STRENGTH ASPIRIN 81 MG PO (08:21)
[2025-07-21] MEDS: ZOLOFT 50 MG PO (08:21)
[2025-07-21] MEDS: JANUVIA 100 MG PO (08:21)
[2025-07-21] MEDS: LIPITOR 40 MG PO (08:21)
[2025-07-21] MEDS: ROCEPHIN 1000 MG IV (08:22)
[2025-07-21] MEDS: FLOMAX 0.4 MG PO (08:22)
[2025-07-21] MEDS: STERILE WATER FOR INJECTION 10 ML IV (08:22)
[2025-07-21] MEDS: XANAX 0.5 MG PO ×3 (08:38→23:08)
--- NOTE | 2025-07-21 11:13 | CON.ID ---
Consultation
-
Date/Time Consultation Requested: 07/21/25 8:22
Date/Time Consultation Performed: 07/21/25 11:13
Requesting Provider: Dr Victor
Performing Provider: Dr Winston
Reason for Consultation: fungal UTI
Chief Complaint / Past History
Chief Complaint
Back Pain, Urinary Symptoms, Fatigue
History of Present Illness
Mr Modi is a 79 year old male with history notable for DM2 who presented here 07/19 complaining of dysuria, frequncy, back pain for about two weeks. He saw his PCP twice and had two different antibiotics but cannot recall which once. The first
agent was associated with some diarrhea. Despite treatments malaise was ongoing and progressed to the point that he was sleeping for much of the day so he presented to the ER.
Since arrival here he has been afebrile, bp stable, wbc initially 15.4 now 11.1, hgb 12.4, plt 211, L shift was present, Cr 1.1, Na 141, urine >100K wbc and many yeast, CT a/p with IV contrast: cystitis, distended bladder and enlarged prostate, mild
L perinephric stranding cannot exclude early pyelo. Urine culture with 100K yeast, I have asked the lab for ID and sensi. Patient was initially started on zosyn then switched to ceftriaxone, now on fluconazole. ID is consulted for assistance with
management.
Past History
Additional Past Medical History:
Hypertension
DM-II
TIA
GERD
Additional Past Surgical History:
Hernia Repair
Skin Graft
L Hand Surgery
Allergy History:
No Known Allergies Allergy (Verified 07/18/25 21:50)
Medications Reviewed: Yes
Social History
Tobacco: Non-Smoker
Alcohol: Former
Drug: None
Family History
Family History: Not Pertinent
Review of Systems
Review of Systems
Constitutional: Reports Fatigue; Denies Fever or Chills
EENT: Denies Sore Throat
Respiratory: Denies Cough or Trouble Breathing
Cardiac: Denies Chest Pain or Palpitations
Abdomen/GI: Denies Abdominal Pain, Nausea, Vomiting or Diarrhea
: Reports Dysuria, Frequency, Flank Pain and Urgency; Denies Bleeding
Musculoskeletal: Denies Joint Pain or Edema
Neurological: Reports Dizzy; Denies Headache
Psych: Denies Depression or Anxiety
Vital Signs
Temp Pulse Resp BP Pulse Ox
98.5 F 83 16 131/76 97
07/21/25 07:20 07/21/25 07:20 07/21/25 07:20 07/21/25 07:20 07/21/25 07:20
Physical Exam
Physical Exam
Constitutional: No Acute Distress
Cardiovascular: Regular Rate and S1/S2; Negative Murmur or Rub
Pulmonary: Clear and Symmetric; Negative Wheezes, Rales or Rhonchi
Gastrointestinal: Soft, Non Tender, Non Distended and Normal Bowel Sounds
Skin: Warm and Dry; Negative Rash or Jaundice
Lab / Diagnostic Study Results
07/21/25 07:09
07/21/25 07:09
Abs Immat Gran (auto) 0.1 10^3/uL (0-0.05) H 07/18/25 23:51
Absolute Neuts (auto) 13.4 10^3/uL (1.4-6.5) H 07/18/25 23:51
Absolute Lymphs (auto) 1.0 10^3/uL (1.2-3.4) L 07/18/25 23:51
Absolute Monos (auto) 0.8 10^3/uL (0.1-0.6) H 07/18/25 23:51
Absolute Basos (auto) 0.1 10^3/uL (0-0.2) 07/18/25 23:51
Immature Gran % 0.7 % (0-0.5) H 07/18/25 23:51
Neutrophils % 87.0 % (42.2-75.2) H 07/18/25 23:51
Lymphocytes % 6.6 % (20.5-51.1) L 07/18/25 23:51
Monocytes % 5.2 % (1.7-9.3) 07/18/25 23:51
Eosinophils % 0.2 % (0-6) 07/18/25 23:51
Basophils % 0.3 % (0-2) 07/18/25 23:51
ESR 38 mm/hour (0-20) H 07/18/25 23:51
PT 13.0 Sec (11.4-14.6) 07/18/25 23:51
INR 0.95 07/18/25 23:51
Lactic Acid 1.1 mmol/L (0.7-2.0) 07/19/25 05:16
Ur Squamous Epith Cells Seen /LPF (Few) 07/19/25 00:13
Microbiology Results
Micro:
07/19/25 00:13 Urine Culture - Preliminary
Urine Yeast
Assessment / Plan
Candidal UTI
- blood cultures x2
- lab will ID the isolate and check sensi if indicated
- increase fluconazole to 400 mg PO qday
- qtc acceptable, recheck in the AM
--- NOTE | 2025-07-21 11:27 | W.PN.HOSP.TC ---
Today's Communication/Plan
-
Assessment / Plan
Assessment / Plan
General: No Apparent Distress, Comfortable and Conversant
HEENT: NormoCephalic, Moist mucous membranes, Atraumatic
Respiratory: Clear and Non Labored Respirations
Cardiac: S1/S2 and Regular Rhythm; No Rub or Gallop
GI: Soft, normal bowel sounds
Musculoskeletal: No Edema, no deformity
Skin: Warm and dry
: Huston catheter in place draining clear yellow urine
Neuro: Awake, Alert, Nonfocal/grossly intact
Psych: Calm and cooperative
79y M with PMH significant for hypertension and DM-II who presents to ED complaining of urinary symptoms, fatigue and back pain.
# UTI / Pyelonephritis
Sepsis secondary to the above
- Patient presents with leukocytosis, tachycardia and UA / symptoms consistent with infection.
- Leukocytosis improved
- CT scan show L hydro with stranding c/w ascending urinary tract infection.
- Urine cultures growing yeast, added fluconazole, continuing ceftriaxone, to be evaluated by ID
- Failed voiding trial, postvoid residual of greater than 600 cc this morning with no sensation of retained urine, Huston catheter back in place, will need outpatient urology follow-up
# Bladder Outlet Obstruction
BPH
- Likely the reason for UTI and failure to improve.
- Huston placed in the ED for initial return of 800cc. Some blood clots / since that time - but minimal.
- Tamsulosin daily.
- Outpatient urology follow-up
# HyperK
- resolved
3. Benign Hypertension
- Patient has been holding his lisinopril due to hypotension / lightheadedness.
- Will continue to hold for now.
4. DM-II
- Stable. Hold most PO meds acutely.
- Follow glucose and cover with SSI as needed.
- Updated A1C is 7.0.
5. Prior TIA
- ASA 81mg daily which should be sufficient.
DVT Prophylaxis: SCDs
Code Status: DNR
Anticipated Discharge: 24 - 48 hours
Subjective/Interval History
-
Date of Service: July 21, 2025
Patient was seen and examined at bedside this morning. Failed voiding trial, Huston catheter back in place. Added fluconazole for yeast growing in the urine culture.
Objective Data
-
Labs:
Laboratory Results
07/21/25
07:09
WBC 11.1 H
Hgb 12.4 L
Hct 37.8 L
Plt Count 211
Sodium 141
Potassium 4.7
Chloride 106
Carbon Dioxide 27
BUN 16
Creatinine 1.1
Glucose 142 H
Calcium 9.2
Vital Signs:
Vital Signs
Temp Pulse Resp BP Pulse Ox
98.5 F 83 16 131/76 97
07/21/25 07:20 07/21/25 07:20 07/21/25 07:20 07/21/25 07:20 07/21/25 07:20
I&O
07/20/25 07/21/25 07/22/25
06:59 06:59 06:59
Intake Total 1845 / 1845 1750 / 1750
Output Total 3550 / 3550 2250 / 2250
Balance -1705 / -1705 -500 / -500
Review of Systems
-
History Source: Patient
All other systems: Reviewed and negative
Physical Exam
-
General: No Apparent Distress
[2025-07-21] MEDS: ROXICODONE 5 MG PO (11:34)
[2025-07-21 11:37] LABS: Glucose - Point of Care 266 mg/dl (70-99)
[2025-07-21] MEDS: DIFLUCAN 400 MG PO (12:18)
[2025-07-21] MEDS: NOVOLOG FLEXPEN-LOW RESISTANCE 3 UNITS SC (12:19)
[2025-07-21 15:20] VITALS: BP 114/69
[2025-07-21 16:19] LABS: Glucose - Point of Care 166 mg/dl (70-99)
[2025-07-21 16:41] VITALS: BP 114/69
[2025-07-21] MEDS: NOVOLOG FLEXPEN-LOW RESISTANCE 1 UNITS SC (17:31)
[2025-07-21] MEDS: ELAVIL 25 MG PO (21:01)
[2025-07-21 21:27] LABS: Glucose - Point of Care 136 mg/dl (70-99)
[2025-07-21 23:14] VITALS: BP 123/71
--- NOTE | 2025-07-22 02:23 | DOWNTIME ---
There was a [employer] Downtime on 07/22/2025 from 0100 to 07/22/2025 at 0215. Downtime documentation of patient's care, including medication administrations, has been reconciled in the electronic record per guidelines. Refer to the
patient's paper chart under the miscellaneous tab to see printed paper medication records and downtime forms.
[2025-07-22 07:20] VITALS: BP 119/70
--- NOTE | 2025-07-22 07:28 | W.PN.HOSP.TC ---
Today's Communication/Plan
-
continue cftx and fluconazole in hosp
will need outpatient uro fu
Assessment / Plan
Assessment / Plan
79y M with PMH significant for hypertension and DM-II who presents to ED complaining of urinary symptoms, fatigue and back pain.
# UTI / Pyelonephritis
Sepsis secondary to the above
- Patient presents with leukocytosis, tachycardia and UA / symptoms consistent with infection.
- Leukocytosis improved
- CT scan show L hydro with stranding c/w ascending urinary tract infection.
- Urine cultures growing yeast, added fluconazole day 2, continuing ceftriaxone day 4.; ID following
- Failed voiding trial on 07/22, Huston catheter back in place, will need outpatient urology follow-up
- Qtc on ekg is acceptable
# mild leukocytosis
- resolved
# Bladder Outlet Obstruction
BPH
- Likely the reason for UTI and failure to improve.
- Huston placed in the ED for initial return of 800cc. Some blood clots / since that time - but minimal.
- Tamsulosin daily.
- Outpatient urology follow-up
# HyperK
- resolved
3. Benign Hypertension
- Patient has been holding his lisinopril due to hypotension / lightheadedness.
- Will continue to hold for now.
4. DM-II
- Stable. Hold most PO meds acutely.
- Follow glucose and cover with SSI as needed.
- Updated A1C is 7.0.
5. Prior TIA
- ASA 81mg daily which should be sufficient.
DVT Prophylaxis: SCDs
Code Status: DNR
Anticipated Discharge: Within 24 hours
Subjective/Interval History
-
Date of Service: July 22, 2025
AFVSS. offers no new complaints
Objective Data
-
Vital Signs:
Vital Signs
Temp Pulse Resp BP Pulse Ox
98.4 F 83 18 123/71 96
07/21/25 23:14 07/21/25 23:14 07/21/25 23:14 07/21/25 23:14 07/21/25 23:14
I&O
07/21/25 07/22/25 07/23/25
06:59 06:59 06:59
Intake Total 1750 / 1750 120 / 120
Output Total 2250 / 2250 2900 / 2900
Balance -500 / -500 -2780 / -2780
Review of Systems
-
History Source: Patient
All other systems: Reviewed and negative
Physical Exam
-
General: No Apparent Distress
HEENT: Normocephalic, Atraumatic and Moist Mucous Membranes
Respiratory: Clear to Auscultation and Non Labored Respirations
Cardiac: Regular Rhythm and S1/S2
GI: Soft, Nontender and Nondistended
Genito-urinary: Clear Urine and Huston
Musculoskeletal: No Clubbing, No Cyanosis and No Edema
Skin: Warm and Dry; Negative Rash
Neuro: Awake, Alert, Oriented and AO x 3
Psych: Calm
Data Reviewed
-
Labs: Labs Reviewed by me, Discussed with Physician and Discussed with Patient
[2025-07-22 08:10] LABS: Glucose - Point of Care 125 mg/dl (70-99)
[2025-07-22] MEDS: NOVOLOG FLEXPEN-LOW RESISTANCE SC ×2 (08:16→16:39)
[2025-07-22] MEDS: FLOMAX 0.4 MG PO (08:25)
[2025-07-22] MEDS: ROCEPHIN 1000 MG IV (08:25)
[2025-07-22] MEDS: LOW STRENGTH ASPIRIN 81 MG PO (08:25)
[2025-07-22] MEDS: JANUVIA 100 MG PO (08:25)
[2025-07-22] MEDS: LIPITOR 40 MG PO (08:25)
[2025-07-22] MEDS: ZOLOFT 50 MG PO (08:25)
[2025-07-22] MEDS: DIFLUCAN 400 MG PO (08:25)
[2025-07-22] MEDS: STERILE WATER FOR INJECTION 10 ML IV (08:25)
[2025-07-22] MEDS: XANAX 0.5 MG PO ×3 (08:32→22:38)
[2025-07-22 09:00] LABS: Hematocrit 42.0 % (39.0-52.0); Hemoglobin 13.5 g/dL (13.0-18.0); Mean Corp Hgb Conc. 32.1 g/dL (33.0-37.0); Mean Corpuscular Volume 85.4 fL (80.0-94.0); Nucleated Red Blood Cells % 0 % (-); Platelet Count 224 10^3/uL (130-400); Red Cell Dist. Width 13.4 % (11.5-14.5)
[2025-07-22 09:40] LABS: Blood Urea Nitrogen 19 mg/dl (9-20); Calcium 9.4 mg/dl (8.4-10.2); Carbon Dioxide 22 mmol/L (22-30); Chloride 104 mmol/L (98-107); Estimated Creatinine Clearance 46 ml/min; Glucose 128 mg/dl (70-99); Potassium 4.8 mmol/L (3.5-5.1); Sodium 139 mmol/L (135-145); eGFR > 60.00
[2025-07-22 11:20] VITALS: BP 111/66
--- NOTE | 2025-07-22 11:28 | W.PN.ID1 ---
Date of Service
Date of Service: July 22, 2025
Today's Communication
continue fluconazole
awaiting ID on the yeast
Assessment / Plan
Candidal UTI
- blood cultures x2
- lab will ID the isolate and check sensi if indicated - expected tomorrow
- continue fluconazole 400 mg PO qday; stop ceftriaxone
- qtc remains acceptable
Chief Complaint
-: UTI
Subjective / Review of Systems
afebrile
bp stable
tolerating current therapies
reports dysuria has resolved
Vital Signs / Physical Exam
Vital Signs
Vital Signs
Temp Pulse Resp BP Pulse Ox
98.1 F 84 16 119/70 96
07/22/25 07:20 07/22/25 07:20 07/22/25 07:20 07/22/25 07:20 07/22/25 07:20
Physical Exam
Constitutional: No Acute Distress
Cardiovascular: Regular Rate and S1/S2; Negative Murmur or Rub
Pulmonary: Clear and Symmetric; Negative Wheezes or Rales
Gastrointestinal: Soft, Non Tender, Non Distended and Normal Bowel Sounds
Genito-Urinary: Negative Suprapubic Tenderness
Skin: Warm and Dry; Negative Rash or Jaundice
Objective Data
Lab Data
Lab Results
07/22/25 08:40
07/22/25 08:40
ESR 38 mm/hour (0-20) H 07/18/25 23:51
PT 13.0 Sec (11.4-14.6) 07/18/25 23:51
INR 0.95 07/18/25 23:51
APTT 29.3 Sec (23.4-35.0) 07/18/25 23:51
Estimated Creat Clear 46 ml/min 07/22/25 08:40
Lactic Acid 1.1 mmol/L (0.7-2.0) 07/19/25 05:16
Total Bilirubin 0.1 mg/dl (0.2-1.3) L 07/18/25 23:51
AST 26 U/L (17-59) 07/18/25 23:51
ALT 22 U/L (0-50) 07/18/25 23:51
Alkaline Phosphatase 52 U/L (38-126) 07/18/25 23:51
Most recent labs reviewed.
Micro Results:
07/21/25 11:56 Blood Culture - Pending
Blood/Venous
07/21/25 11:32 Blood Culture - Pending
Blood/Venous
07/19/25 00:13 Urine Culture - Preliminary
Urine Yeast
[2025-07-22 12:03] LABS: Glucose - Point of Care 179 mg/dl (70-99)
[2025-07-22] MEDS: NOVOLOG FLEXPEN-LOW RESISTANCE 1 UNITS SC (12:05)
[2025-07-22] MEDS: TYLENOL 650 MG PO (12:07)
[2025-07-22 15:20] VITALS: BP 120/67
--- NOTE | 2025-07-22 16:23 | CM ---
Huston replaced.
Spoke with and patient at bedside.
Offered VN he declined at this time.
will drive him home.
PLAN Home no needs
[2025-07-22 16:39] LABS: Glucose - Point of Care 104 mg/dl (70-99)
[2025-07-22 17:28] LABS: Glucose - Point of Care 190 mg/dl (70-99)
[2025-07-22 21:07] LABS: Glucose - Point of Care 132 mg/dl (70-99)
[2025-07-22] MEDS: ELAVIL 25 MG PO (22:38)
[2025-07-22 23:47] VITALS: BP 129/72
--- NOTE | 2025-07-23 07:22 | W.PN.HOSP.TC ---
Today's Communication/Plan
-
awaiting Lb ID for isolate and sens
cont fluconazole
potential dc later today
Assessment / Plan
Assessment / Plan
79y M with PMH significant for hypertension and DM-II who presents to ED complaining of urinary symptoms, fatigue and back pain.
# UTI / Pyelonephritis
Sepsis secondary to the above
- Patient presents with leukocytosis, tachycardia and UA / symptoms consistent with infection.
- Leukocytosis improved
- CT scan show L hydro with stranding c/w ascending urinary tract infection.
- Urine cultures growing yeast, added fluconazole day 3
- ceftriaxone d/c (completed 4 fays).; ID following
- Failed voiding trial on 07/22, Huston catheter back in place, will need outpatient urology follow-up
- Qtc on ekg is acceptable
- waiting for Lab ID of isolate and sens
# mild leukocytosis
- resolved
# Bladder Outlet Obstruction
BPH
- Likely the reason for UTI and failure to improve.
- Huston placed in the ED for initial return of 800cc. Some blood clots / since that time - but minimal.
- Tamsulosin daily.
- Outpatient urology follow-up
# HyperK
- resolved
3. Benign Hypertension
- Patient has been holding his lisinopril due to hypotension / lightheadedness.
- Will continue to hold for now.
4. DM-II
- Stable. Hold most PO meds acutely.
- Follow glucose and cover with SSI as needed.
- Updated A1C is 7.0.
5. Prior TIA
- ASA 81mg daily which should be sufficient.
DVT Prophylaxis: SCDs
Code Status: DNR
Anticipated Discharge: Today
Subjective/Interval History
-
Date of Service: July 23, 2025
AFVSS. offers no new complaints
Objective Data
-
Labs:
Laboratory Results
07/23/25 07/23/25 07/23/25
07:13 07:13 07:13
WBC Pending Pending
Hgb Pending Pending
Hct Pending
Plt Count
Sodium
Potassium
Chloride
Carbon Dioxide
BUN
Creatinine
Glucose
Calcium
07/23/25 07/23/25 07/23/25
07:13 07:13 07:13
WBC
Hgb
Hct Pending
Plt Count Pending Pending
Sodium Pending Pending
Potassium Pending
Chloride
Carbon Dioxide
BUN
Creatinine
Glucose
Calcium
07/23/25 07/23/25 07/23/25
07:13 07:13 07:13
WBC
Hgb
Hct
Plt Count
Sodium
Potassium Pending
Chloride Pending Pending
Carbon Dioxide Pending Pending
BUN Pending
Creatinine
Glucose
Calcium
07/23/25 07/23/25 07/23/25
07:13 07:13 07:13
WBC
Hgb
Hct
Plt Count
Sodium
Potassium
Chloride
Carbon Dioxide
BUN Pending
Creatinine Pending Pending
Glucose Pending Pending
Calcium Pending
07/23/25
07:13
WBC
Hgb
Hct
Plt Count
Sodium
Potassium
Chloride
Carbon Dioxide
BUN
Creatinine
Glucose
Calcium Pending
Vital Signs:
Vital Signs
Temp Pulse Resp BP Pulse Ox
98.1 F 81 18 129/72 96
07/22/25 23:47 07/22/25 23:47 07/22/25 23:47 07/22/25 23:47 07/22/25 23:47
I&O
07/22/25 07/23/25 07/24/25
06:59 06:59 06:59
Intake Total 120 / 120 480 / 480
Output Total 2900 / 2900 2175 / 2175
Balance -2780 / -2780 -1695 / -1695
Review of Systems
-
History Source: Patient
All other systems: Reviewed and negative
Physical Exam
-
General: No Apparent Distress
HEENT: Normocephalic, Atraumatic and Moist Mucous Membranes
Respiratory: Clear to Auscultation and Non Labored Respirations
Cardiac: Regular Rhythm and S1/S2
GI: Soft, Nontender and Nondistended
Genito-urinary: Clear Urine and Huston
Musculoskeletal: No Clubbing, No Cyanosis and No Edema
Skin: Warm and Dry; Negative Rash
Neuro: Awake, Alert, Oriented and AO x 3
Psych: Calm
Data Reviewed
-
Labs: Labs Reviewed by me, Discussed with Physician and Discussed with Patient
[2025-07-23 07:56] LABS: Glucose - Point of Care 119 mg/dl (70-99)
[2025-07-23] MEDS: NOVOLOG FLEXPEN-LOW RESISTANCE SC (08:02)
[2025-07-23 08:08] LABS: Hematocrit 40.1 % (39.0-52.0); Hemoglobin 13.5 g/dL (13.0-18.0); Mean Corp Hgb Conc. 33.7 g/dL (33.0-37.0); Mean Corpuscular Volume 84.1 fL (80.0-94.0); Platelet Count 236 10^3/uL (130-400); Red Cell Dist. Width 13.2 % (11.5-14.5)
[2025-07-23 08:09] LABS: Hematocrit 39.4 % (39.0-52.0); Hemoglobin 13.5 g/dL (13.0-18.0); Mean Corp Hgb Conc. 34.3 g/dL (33.0-37.0); Mean Corpuscular Volume 84.2 fL (80.0-94.0); Nucleated Red Blood Cells % 0 % (-); Platelet Count 238 10^3/uL (130-400); Red Cell Dist. Width 13.3 % (11.5-14.5)
[2025-07-23 08:15] LABS: Blood Urea Nitrogen 24 mg/dl (9-20); Calcium 9.5 mg/dl (8.4-10.2); Carbon Dioxide 27 mmol/L (22-30); Chloride 101 mmol/L (98-107); Estimated Creatinine Clearance 42 ml/min; Glucose 129 mg/dl (70-99); Potassium 5.1 mmol/L (3.5-5.1); Sodium 137 mmol/L (135-145); eGFR 56.58
[2025-07-23 08:18] VITALS: BP 135/80
[2025-07-23] MEDS: LOW STRENGTH ASPIRIN 81 MG PO (08:38)
[2025-07-23] MEDS: FLOMAX 0.4 MG PO (08:38)
[2025-07-23] MEDS: DIFLUCAN 400 MG PO (08:38)
[2025-07-23] MEDS: LIPITOR 40 MG PO (08:38)
[2025-07-23] MEDS: JANUVIA 100 MG PO (08:38)
[2025-07-23] MEDS: ZOLOFT 50 MG PO (08:38)
[2025-07-23] MEDS: XANAX 0.5 MG PO (08:38)
[2025-07-23 08:47] LABS: Blood Urea Nitrogen 25 mg/dl (9-20); Calcium 9.5 mg/dl (8.4-10.2); Carbon Dioxide 26 mmol/L (22-30); Chloride 100 mmol/L (98-107); Estimated Creatinine Clearance 42 ml/min; Glucose 126 mg/dl (70-99); Potassium 4.9 mmol/L (3.5-5.1); Sodium 133 mmol/L (135-145); eGFR 56.58
[2025-07-23 11:41] LABS: Glucose - Point of Care 262 mg/dl (70-99)
--- NOTE | 2025-07-23 12:24 | W.PN.ID1 ---
Date of Service
Date of Service: July 23, 2025
Today's Communication
- continue fluconazole 400 mg PO qday for a 7 day total course 07/21-07/27
Assessment / Plan
Candidal UTI
- blood cultures x2
- lab will ID the isolate and check sensi if indicated - expected tomorrow
- continue fluconazole 400 mg PO qday for a 7 day total course 07/21-07/27
- follow up with PCP
Chief Complaint
-: UTI
Subjective / Review of Systems
afebrile
bp stable
yeast resulted as C albicans
Vital Signs / Physical Exam
Vital Signs
Vital Signs
Temp Pulse Resp BP Pulse Ox
97.8 F 83 18 135/80 96
07/23/25 08:18 07/23/25 08:18 07/23/25 08:18 07/23/25 08:18 07/23/25 08:18
Physical Exam
Constitutional: No Acute Distress
Cardiovascular: Regular Rate and S1/S2; Negative Murmur or Rub
Pulmonary: Clear and Symmetric; Negative Wheezes or Rales
Gastrointestinal: Soft, Non Tender, Non Distended and Normal Bowel Sounds
Skin: Warm and Dry; Negative Rash or Jaundice
Objective Data
Lab Data
Lab Results
07/23/25 07:13
07/23/25 07:13
ESR 38 mm/hour (0-20) H 07/18/25 23:51
PT 13.0 Sec (11.4-14.6) 07/18/25 23:51
INR 0.95 07/18/25 23:51
APTT 29.3 Sec (23.4-35.0) 07/18/25 23:51
Estimated Creat Clear 42 ml/min 07/23/25 07:13
Estimated Creat Clear 42 ml/min 07/23/25 07:13
Lactic Acid 1.1 mmol/L (0.7-2.0) 07/19/25 05:16
Total Bilirubin 0.1 mg/dl (0.2-1.3) L 07/18/25 23:51
AST 26 U/L (17-59) 07/18/25 23:51
ALT 22 U/L (0-50) 07/18/25 23:51
Alkaline Phosphatase 52 U/L (38-126) 07/18/25 23:51
Most recent labs reviewed.
Micro Results:
07/19/25 00:13 Urine Culture - Final
Urine Earnestine albicans
07/21/25 11:56 Blood Culture - Preliminary
Blood/Venous No Growth in 48 hours- Final report to follow
07/21/25 11:32 Blood Culture - Preliminary
Blood/Venous No Growth in 48 hours- Final report to follow
Care Review
Plan reviewed with: Physician (Dr Busch - antifungals)
[2025-07-23] MEDS: NOVOLOG FLEXPEN-LOW RESISTANCE 3 UNITS SC (12:30)
--- NOTE | 2025-07-23 15:08 | CM ---
MD entered order for discharge.
Spoke with patient he said he was ready for discharge.
He has a Huston . Offered VN . He said that he did not need VN . He has had Huston in past and understands care.
will drive him home.
IMM letter reviewed signed and on chart.
PLAN Home no needs
[2025-07-23 15:13] VITALS: BP 105/73
--- NOTE | 2025-07-23 18:12 | W.DCSUMMARY ---
Discharge Summary
Discharge Data
Date of Admission: 07/19/25
Date of Discharge: 07/23/25
-
Pending Results: No
Hospital Course
Discharging Physician : Luca Roberts MD ; Edwin Cazares DO
Disposition : Home
Primary care physician : German Ha
Principal Discharge diagnosis : Sepsis secondary to pyelonephritis, Earnestine UTI, hyponatremia
Chronic Discharge diagnosis : Bladder outlet obstruction/BPH, hypertension, diabetes type 2, prior TIA
Hospital Course : 79y M with PMH significant for hypertension and DM-II who presents to ED complaining of back pain, dysuria, frequency and fatigue. CAT scan of abdomen was performed which showed left-sided hydro with stranding C/W ascending
urinary tract infection. He also had leukocytosis on the labs and tachycardia on the physical exam urine analysis was consistent with infection. He was started on IV ceftriaxone. A Huston was also placed with initial return of 800 cc. Daily labs
were monitored. There was also 1 trial of void was done however he feels and Huston was reinserted. He was advised to follow-up outpatient with the urology. Started on tamsulosin daily. For infection the culture showed yeast and ID was consulted
which helped with the management. He was started on fluconazole which was continued at the time of discharge. Ceftriaxone was stopped after 4 days. Yeast resulted as Earnestine albicans. At the time of discharge she was advised to complete total 7
days of fluconazole 400 mg tablet and follow-up outpatient with PCP as well as urologist for the management of Huston and trial of voiding. He voices understanding.
Important imaging findings : CT Head W/o Iv Contrast: No acute intracranial abnormality.
CT Abd/pelvis W Iv Cont:
Moderate urinary bladder wall thickening with some perivascular stranding which suggests inflammatory/infectious process such as cystitis. Urinary bladder proper markedly distended. Enlarged prostate which may account for at least portion of urinary
bladder wall thickening.
Delayed left renal excretion with mild left renal and left ureteral dilatation which may be on the basis of vesicoureteral reflux. Some mild left perinephric stranding, cannot exclude early changes of pyelonephritis.
Cholelithiasis.
Small right renal cyst.
Small hiatal hernia.
Procedure findings : Urine culture: Earnestine albicans
Discharge Plan
-
Patient Disposition: Home (Routine Discharge)
Discharge Diagnosis/Procedures: Pyelonephritis, fungal UTI
Activity Restrictions/Additional Instructions:
You were admitted to the hospital for treatment of a kidney and bladder infection. You were initially treated with antibiotics and later switched to treatment with antifungals based on urine cultures. You will continue this treatment through
07/27/2025. You were also found to be retaining urine and so a Huston catheter was placed. You will need to continue on a medication called tamsulosin and follow-up with a urologist in the office for another voiding trial.
Referrals:
Vish Moran MD [Active, Urology]
Referral Note: Acute urinary retention, failed voiding trial inpatient
German Ha DO [Family Provider, Family Practice]
Prescriptions:
New
fluconazole 200 mg Tablet
400 mg PO DAILY 4 Days Qty: 8 0RF
tamsulosin 0.4 mg Capsule
0.4 mg PO DAILY 30 Days Qty: 30 0RF
aspirin 81 mg Tablet,Chewable
81 mg PO DAILY 30 Days Qty: 30 0RF
Continued
simvastatin 80 MG tablet
80 mg PO DAILY
alprazolam 0.5 MG tablet
0.5 mg PO TID
metformin 1,000 MG tablet
1,000 mg PO BID
zinc acetate 50 mg (zinc) Capsule
50 mg PO DAILY
glipizide 5 mg Tablet Extended Release 24hr
5 mg PO BID
amitriptyline 25 mg Tablet
25 mg PO DAILY
gabapentin 300 mg Capsule
300 - 600 mg PO DAILY
zolpidem 10 mg Tablet
10 mg PO HS
sertraline 50 mg Tablet
50 mg PO DAILY
Januvia 100 mg Tablet
100 mg PO DAILY
cholecalciferol (vitamin D3) [Vitamin D3] 50 mcg (2,000 unit) Capsule
50 mcg PO DAILY
Invokana 300 mg Tablet
300 mg PO DAILY
pantoprazole [Protonix] 40 mg tablet,delayed release (DR/EC)
40 mg PO DAILY Qty: 30 0RF
Held
Lisinopril 10 MG
10 10 PO DAILY
Hold Instructions: Follow-up with initial prescriber regarding restarting this medication if needed
Patient Comments:
Pt not currently taking, was held for low BP
tolterodine 2 mg Tablet
4 mg PO DAILY
Hold Instructions: Hold until outpatient follow-up with urologist
Discontinued
aspirin 325 mg Tablet
325 mg PO DAILY
Discharge Orders:
Discharge Patient (As Directed); Ordered 07/23/25
Ordered By: Edwin Victor
Discharge Date and Time
Discharge Date/Time: 07/23/25 16:14
Print Language: VINCENTIAN
== END 2025-07-23 16:14 | disposition home or self-care (01) | DRG 872 ==
LOC: 4 EAST ACU 06:24
PROVIDERS: ADMITTING PHYSICIAN Hospitalist; ATTENDING PHYSICIAN Internal Medicine; EMERGENCY PHYSICIAN Student in an Organized Health Care Education/Training Program; FAMILY PHYSICIAN Family Medicine; OTHER PHYSICIAN Student in an Organized Health Care Education/Training Program
DX: A41.9 Sepsis, unspecified organism (principal); N10 Acute pyelonephritis; B37.49 Other urogenital candidiasis; E87.1 Hypo-osmolality and hyponatremia; N32.0 Bladder-neck obstruction; E87.5 Hyperkalemia; K21.9 Gastro-esophageal reflux disease without esophagitis; E11.9 Type 2 diabetes mellitus without complications; I95.9 Hypotension, unspecified; I10 Essential (primary) hypertension; N40.1 Benign prostatic hyperplasia with lower urinary tract symptoms; Z66 Do not resuscitate; Z11.52 Encounter for screening for COVID-19; Z79.899 Other long term (current) drug therapy; Z86.73 Personal history of transient ischemic attack (TIA), and cerebral infarction without residual deficits
CPT/HCPCS: 51702; 70450; 74177; 80048; 80053; 81003; 81015; 82947; 82962; 83036; 83605; 84484; 85025; 85027; 85610; 85652; 85730; 87040; 87086; 87106; 87811; 93005; 96361; 96374; 96375; 99285; Q9967